=== PATIENT | female | born 1980 | race Caucasian/White ===

== ENCOUNTER 2016-12-04 12:22 | Emergency (ER) | payer SELFPAY ==
[2016-12-04 12:41] VITALS: BP 131/65
--- NOTE | 2016-12-04 13:24 | ED ---
Throat Pain/Nasal Congestion - HPI Summary HPI Summary: 36yo female presents with a feeling of a foreign body in her right eye since yesterday. She does not know if something might of went into her eye. She was only watching TV when the symptoms started. No symptoms previously. No contacts or eye glasses. Pain worse with looking to the right, and some blurred vision looking to the right as well. Some peripheral blurred vision when looking straight. No discharge or drainage. No shadows or curtain dropping in vision. + photophobia. Tetanus is up to date. LMP Nov 16. - History of Current Complaint Chief Complaint: EDEyeProblem - Allergies/Home Medications Allergies/Adverse Reactions: Allergies Allergy/AdvReac Type Severity Reaction Status Date / Time Latex Allergy Intermediate Rash Verified 02/23/15 11:29 PMH/Surg Hx/FS Hx/Imm Hx Previously Healthy: Yes - Surgical History Surgery Procedure, Year, and Place: CSECTION Infectious Disease History: No Infectious Disease History: Denies: Traveled Outside the [place] in Last 30 Days - Family History Known Family History: Positive: Other - breast and lung cancer. 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 HEENT: Head atraumatic/normocephalic, EOMI/PIO, conjunctiva with minimal erythema. No drainage. Lid without edema or erythema. Slit lamp exam showed no hyphema, no uptake of fluroscein, no foreign body, clear anterior chamber. + photophobia with pain with pupil constriction by accommodation. No punctate lesions. TMs appear without erythema/bulging, Nose appears without congestion or drainage, Throat uvula midline without exudates, erythema, or tonsillar edema. NECK: Supple with normal range of motion during conversation. No lymphadenopathy. CARDIAC: RRR without murmur, rub or gallop LUNGS: Clear to auscultation without wheezing, rales or rhonchi. Normal respiratory effort. Breath sounds are symmetrical and equal. NEUROLOGICAL: Patient is alert and appropriate. Cranial nerves are grossly intact. PSYCHIATRIC: Appropriate affect. Vital Signs On Initial Exam: Initial Vitals Temp Pulse Resp BP Pulse Ox 98.5 F 69 16 131/65 99 12/04/16 12:39 12/04/16 12:39 12/04/16 12:39 12/04/16 12:39 12/04/16 12:39 Diagnostics - Vital Signs Vital Signs Temp Pulse Resp BP Pulse Ox 12/04/16 12:39 98.5 F 69 16 131/65 99 - Laboratory Lab Statement: Any lab studies that have been ordered have been reviewed, and results considered in the medical decision making process. Re-Evaluation - Re-Evaluation First Eval Change: Unchanged Second Eval Change: Improved - Some improvement with tetracaine Third Eval Change: Improved - Patient states that pain has resolved completely after Dr. Ortiz's exam. EENT Course/Dx - Course Assessment/Plan: 36yo female presents with sudden onset of right eye pain with a feeling of a foreign body. Patient with an exam only significant for photophobia and mild conjunctival inflammation. No foreign body seen, no uptake. Normal visual acuities. Exam repeated by Dr. Ortiz. Patient stated that symptoms completely resolved before discharge. Discussed with Dr. Palmer who will see in the office tomorrow at 8am. Patient to return with any problems, concerns or new/worsening symptoms. - Diagnoses Provider Diagnoses: Pain, eye, right - Provider Notifications Discussed Care of Patient with: Dr. Ortiz, saw and examined patient. Dr. Palmer, will see patient tomorrow at 8a Discharge - Discharge Plan Condition: Good Disposition: HOME Patient Education Materials: Ibuprofen (By mouth), Eye Pain (ED) Referrals: Justin Palmer MD [Medical Doctor] - 1 Day No Primary Care Phys,NOPCP [Primary Care Provider] - Additional Instructions: You have an appointment tomorrow at 8am at Dr. Palmer's office. Please bring your insurance, id and any copay needed at they're request. Please return with any problems, concerns or new/worsening symptoms.
== END 2016-12-04 16:03 | disposition home or self-care (01) ==
LOC: ED 12:22
DX: H53.8 Other visual disturbances (principal); H53.149 Visual discomfort, unspecified; R51 Headache
CPT/HCPCS: 99282

== ENCOUNTER 2017-03-07 13:33 | Emergency (ER) | payer SELFPAY ==
--- NOTE | 2017-03-07 16:07 | RAD ---
INDICATION: Early evaluation. No heart rate identified at referring facility. 8 weeks . Evaluate for demise. COMPARISON: None TECHNIQUE: Transvaginal scans were performed with static and cine loop evaluation FINDINGS: There is an intrauterine gestational sac and pole. The pole is slightly irregular and there is no confirmed heart rate. The yolk sac is hydropic. The findings are suspicious for demise but must be correlated with serial beta-hCGs and follow-up ultrasonography. There is no adnexal mass. The right ovary measures 2.3 x 2.2 x 1.3 cm in the left 2.8 x 4.0 x 1.9 cm. There is left-sided corpus luteal cyst measuring 2.8 cm. IMPRESSION: CARDIAC ACTIVITY IS NOT CONFIRMED. SUGGEST LABORATORY AND IMAGING FOLLOW-UP OUTLINED ABOVE.
[2017-03-07 16:11] LABS: Albumin 3.8 g/dL (3.2-5.2); BUN/Creatinine Ratio 15.5 (8-20); Calcium 8.7 mg/dL (8.6-10.3); EGFR African American 151.3 (>60); EGFR Non-African American 117.6 (>60); Globulin 2.5 g/dL (2-4); Potassium 3.8 mmol/L (3.5-5.0); Total Bilirubin 0.3 mg/dL (0.2-1.0); Total Protein 6.3 g/dL (6.4-8.9)
[2017-03-07 16:46] LABS: Hematocrit 38 % (35-47); Hemoglobin 12.9 g/dl (12.0-16.0); Mean Corpuscular HGB Conc 34 g/dl (31-36); Mean Corpuscular Hemoglobin 31 pg (27-31); Mean Corpuscular Volume 90 fL (80-97); Mean Platelet Volume 9 um3 (7.4-10.4); Red Blood Count 4.22 10^6/ul (4.0-5.4); Red Cell Distribution Width 13 % (10.5-15); White Blood Count 14.1 10^3/ul (3.5-10.8)
[2017-03-07] MEDS ORDERED: Acetaminophen TAB* 325 MG PO ONE (17:39)
[2017-03-07] MEDS ORDERED: Acetaminophen TAB* 325 MG ONE (17:40)
[2017-03-07 17:48] VITALS: BP 115/74
--- NOTE | 2017-03-07 19:18 | ED ---
Sammi Alaniz Alok, scribed for Adi Bower MD on 03/07/17 at 1526 . - HPI Summary HPI Summary: 36 y/o female [facility], fetus HR could not be detected. Pt is 8 weeks and this his her 6th with 2 live births and 3 miscarriages ( GPA = 6, 2, 3). Her LNMP was Dec 21, 2016. Pt notes swollen breasts and increased urine frequency consistent with earlier pregnancies. Pt denies abd pain, vaginal bleeding, back pain, kidney pain, leg swelling, lightheadedness or dizziness. Pt denies tobacco or ETOH use. Her last was May 2014 and pt is blood type A-positive (VERIFIED). - History of Current Complaint Chief Complaint: EDOBProblems Stated Complaint: POSS MISCARRIAGE Time Seen by Provider: 03/07/17 14:51 Hx Obtained From: Patient Chief Complaint: Concern for Demise Pain Intensity: 0 Associated Signs and Symptoms: Negative: Back Pain, Fever, Vaginal Bleeding or Discharge - Assessment Hx Now: Yes Hx : 6 Hx Para: 2 SAB: 1 IEA: 4 Hx Last Menstrual Period: 12/21/16 - Additional Pertinent History Maternal Blood Type and Rh: A Positive - Allergies/Home Medications Allergies/Adverse Reactions: Allergies Allergy/AdvReac Type Severity Reaction Status Date / Time Latex Allergy Intermediate Rash Verified 02/23/15 11:29 PMH/Surg Hx/FS Hx/Imm Hx - Surgical History Surgery Procedure, Year, and Place: CSECTION Infectious Disease History: No Infectious Disease History: Denies: Traveled Outside the [place] in Last 30 Days - Family History Known Family History: Positive: Other - breast and lung cancer. - Social History Occupation: Employed Full-time Alcohol Use: None Substance Use Type: Reports: None Smoking Status (MU): Former Smoker Type: Cigarettes Amount Used/How Often: 1 PPD x4 years-quit 9 yrs ago Length of Time of Smoking/Using Tobacco: 4 years Have You Smoked in the Last Year: No Review of Systems Negative: Fever Negative: Abdominal Pain Positive: frequency. Negative: flank pain Negative: Edema, Other - Back pain Neurological: Other - Negative: lightheadedness, dizziness All Other Systems Reviewed And Are Negative: Yes Physical Exam - Summary Physical Exam Summary: The patient is well-nourished in no acute distress and in no acute pain. The skin is warm and dry and skin color reflects adequate perfusion. Good skin turgor HEENT: The head is normocephalic and atraumatic. The pupils are equal and reactive. The conjunctivae are clear and without drainage. Nares are patent and without drainage. Mouth reveals moist mucous membranes and the throat is without erythema and exudate. The external ears are intact. The ear canals are patent and without drainage. The tympanic membranes are intact. Neck is supple with full range of motion and non-tender. There are no carotid bruits. There is no neck vein distension. Respiratory: Chest is non-tender. Lungs are clear to auscultation and breath sounds are symmetrical and equal. Cardiovascular: Hear is regular rate and rhythm. There is no murmur or rub auscultated. There is no peripheral edema and pulses are symmetrical and equal. Abdomen: The abdomen is soft and non-tender. Abdomen is non-distended There are normal bowel sounds heard in all four quadrants and there is no organomegaly palpated. Musculoskeletal: There is no back pain noted. No CVA tenderness. Extremities are non-tender with full range of motion. There is good capillary refill. There is no peripheral edema or calf tenderness elicited. Neurological: Patient is alert and oriented to person, place and time. The patient has symmetrical motor strength in all four extremities. Cranial nerves are grossly intact. Deep tendon reflexes are symmetrical and equal in all four extremities. Psychiatric: The patient has an appropriate affect and does not exhibit any anxiety or depression. - Physical Exam Triage Information Reviewed: Yes Vital Signs On Initial Exam: Initial Vital Signs Temp 99.0 F 03/07/17 13:35 Pulse 75 03/07/17 13:35 Resp 16 03/07/17 13:35 BP 126/75 03/07/17 13:35 Pulse Ox 100 03/07/17 13:35 Vital Signs Reviewed: Yes Diagnostics - Vital Signs Vital Signs Temp Pulse Resp BP Pulse Ox 03/07/17 14:48 98.5 F 71 16 123/63 98 03/07/17 13:35 99.0 F 75 16 126/75 100 - Laboratory Lab Results: Lab Results 03/07/17 03/07/17 Range/Units 15:43 16:36 WBC 14.1 H (3.5-10.8) 10^3/ul RBC 4.22 (4.0-5.4) 10^6/ul Hgb 12.9 (12.0-16.0) g/dl Hct 38 (35-47) % MCV 90 (80-97) fL MCH 31 (27-31) pg MCHC 34 (31-36) g/dl RDW 13 (10.5-15) % Plt Count 253 (150-450) 10^3/ul MPV 9 (7.4-10.4) um3 Neut % (Auto) 67.6 (38-83) % Lymph % (Auto) 23.6 L (25-47) % Barnwell % (Auto) 5.6 (1-9) % Eos % (Auto) 2.6 (0-6) % Baso % (Auto) 0.6 (0-2) % Absolute Neuts (auto) 9.5 H (1.5-7.7) 10^3/ul Absolute Lymphs (auto) 3.3 (1.0-4.8) 10^3/ul Absolute Monos (auto) 0.8 (0-0.8) 10^3/ul Absolute Eos (auto) 0.4 (0-0.6) 10^3/ul Absolute Basos (auto) 0.1 (0-0.2) 10^3/ul Absolute Nucleated RBC 0.01 10^3/ul Nucleated RBC % 0.1 Sodium 134 (133-145) mmol/L Potassium 3.8 (3.5-5.0) mmol/L Chloride 106 (101-111) mmol/L Carbon Dioxide 23 (22-32) mmol/L Anion Gap 5 (2-11) mmol/L BUN 9 (6-24) mg/dL Creatinine 0.58 (0.51-0.95) mg/dL Est GFR ( Amer) 151.3 (>60) Est GFR (Non-Af Amer) 117.6 (>60) BUN/Creatinine Ratio 15.5 (8-20) Glucose 109 H (70-100) mg/dL Calcium 8.7 (8.6-10.3) mg/dL Total Bilirubin 0.30 (0.2-1.0) mg/dL AST 12 L (13-39) U/L ALT 9 (7-52) U/L Alkaline Phosphatase 38 (34-104) U/L Total Protein 6.3 L (6.4-8.9) g/dL Albumin 3.8 (3.2-5.2) g/dL Globulin 2.5 (2-4) g/dL Albumin/Globulin Ratio 1.5 (1-3) Beta HCG, Quant 20945.00 mIU/mL Result Diagrams: 03/07/17 16:36 03/07/17 15:43 Lab Statement: Any lab studies that have been ordered have been reviewed, and results considered in the medical decision making process. - Additional Comments Diagnostic Additional Comments: Transvaginal US - IMPRESSION: CARDIAC ACTIVITY IS NOT CONFIRMED. SUGGEST LABORATORY AND IMAGING FOLLOW-UP OUTLINED ABOVE. Re-Evaluation - Re-Evaluation First Eval Re-Evaluation Time: 17:21 Comment: Reviewed lab result and let patient know we are contacting OBGYN Course/Dx - Differential Diagnosis/HQI/PQRI: Spontaneous , Threatened , Ectopic , Early - Diagnoses Provider Diagnoses: Threatened miscarriage - Provider Notifications Discussed Care Of Patient With: Dr. Reyna (OBGYN) @ [id number] will follow up as an outpatient Discharge - Discharge Plan Condition: Stable Disposition: HOME Patient Education Materials: Threatened Miscarriage (ED) Referrals: No Primary Care Phys,NOPCP [Primary Care Provider] - Leanne Reyna MD [Medical Doctor] - Additional Instructions: Please follow up with OBGYN. The documentation as recorded by the Sammi saleem Alok accurately reflects the service I personally performed and the decisions made by me, Adi Bower MD.
== END 2017-03-07 17:47 | disposition home or self-care (01) ==
LOC: ED 13:33
DX: O20.0 Threatened abortion (principal); Z3A.08 8 weeks gestation of pregnancy; Z87.891 Personal history of nicotine dependence
CPT/HCPCS: 36415; 76817; 80053; 84702; 85025; 99282; A9270-GY

== ENCOUNTER 2017-03-20 09:50 | Day surgery (SDC) | payer SELFPAY ==
[~2017-03-20 09:50] MED LIST: Buffered Lidocaine 1% SYRIN* 3 ML/SYR SYRINGE INTRADERM ONE; DOXYcycline IV* 100 MG in NS 0.9% 250 ML* 250 ML IVPB ONE; Famotidine IV* 10 MG/ML 2 ML (20 mg) IV ONE; Famotidine IV* 10 MG/ML 2 ML (20 mg) ONE; Metoclopramide TAB* 10 MG ONE; Metoclopramide TAB* 10 MG PO ONE
[2017-03-20] MEDS ORDERED: Propofol* 10 MG/ML 20 ML BTL IV PUSH ONE (10:36)
[2017-03-20] MEDS ORDERED: Ketorolac INJ* 30 MG/ML 1 ML VIAL ONE (10:36)
[2017-03-20] MEDS ORDERED: Lidocaine 2% PF * 5 ML VIAL ONE (10:36)
[2017-03-20] MEDS ORDERED: KETAMINE HCL* 50 MG/ML 10 ML VIAL ONE (10:36)
[2017-03-20] MEDS ORDERED: fentaNYL* 50 MCG/ML 2 ML VIAL (100 MCG VIAL) ONE (10:36)
[2017-03-20] MEDS ORDERED: Ondansetron INJ* 2 MG/ML VIAL ONE (10:36)
[2017-03-20] MEDS ORDERED: Midazolam* 1 MG/ML 5 ML VIAL (5 MG) ONE (10:36)
[2017-03-20] MEDS ORDERED: Dexamethasone IV* 4 MG/ML 1 ML (4 MG) ONE (10:36)
[2017-03-20 10:41] LABS: Hematocrit 37 % (35-47); Hemoglobin 12.7 g/dl (12.0-16.0); Mean Corpuscular HGB Conc 35 g/dl (31-36); Mean Corpuscular Hemoglobin 31 pg (27-31); Mean Corpuscular Volume 90 fL (80-97); Mean Platelet Volume 9 um3 (7.4-10.4); Red Blood Count 4.07 10^6/ul (4.0-5.4); Red Cell Distribution Width 13 % (10.5-15); White Blood Count 9.4 10^3/ul (3.5-10.8)
[2017-03-20] MEDS ORDERED: Silver Nitrate/Potassium Nitr* 1 EA STICK ONE (10:43)
[2017-03-20] MEDS ORDERED: oxyCODONE/Acetamin 5/325 MG* TAB PO PRN (11:54)
[2017-03-20] MEDS ORDERED: Ondansetron INJ* 2 MG/ML VIAL IV PRN (11:54)
[2017-03-20] MEDS ORDERED: fentaNYL* 50 MCG/ML 2 ML VIAL (100 MCG VIAL) IV PRN (11:54)
[2017-03-20] MEDS ORDERED: HYDROmorphone* 1 MG/ML 1 ML SYR IV PRN (11:54)
[2017-03-20 13:03] VITALS: BP 113/70
--- NOTE | 2017-03-21 13:49 | OP ---
DATE OF OPERATION: 03/20/17 [facility] DATE OF : 80 SURGEON: Naveed Licea MD ANESTHESIOLOGIST: Shelton Tony MD ANESTHESIA: General endotracheal. PRE-OP DIAGNOSIS: Missed at about 7 weeks' gestation. POST-OP DIAGNOSIS: Missed at about 7 weeks' gestation. OPERATIVE PROCEDURE: Suction dilation and curettage. INDICATIONS: This patient is a 36-year-old 8, para 2, who presented to the office and was found to have an approximately 6-1/2- to 7-week with no cardiac activity. The patient had not been having any bleeding or cramping. The patient desired to proceed with a D and C for management. She was extensively counseled and consent was signed. ESTIMATED BLOOD LOSS: 100 cc. URINE OUTPUT: 200 cc. IV FLUIDS: 1000 cc of lactated Ringer's. MATERIALS TO LAB: Products of conception. FINDINGS: Moderate amount of fluid and tissue within the uterus. COMPLICATIONS: None. DESCRIPTION OF PROCEDURE: The risks, benefits, and alternatives were described to the patient and informed consent was obtained. The patient was taken to the operating room with IV running where general anesthesia was induced and found to be adequate. The patient was prepped and draped in the normal sterile fashion in the high lithotomy position in Angel stirrups. A time-out was performed. The bladder was emptied. A bivalved speculum was placed in the vagina and a single-tooth tenaculum was placed on the anterior cervix. The cervix was then gently dilated using Doyle's dilators. The uterus was sounded to approximately 11 cm. Once the cervix had been sufficiently dilated, a size 8 suction curette was advanced through the cervix and into the uterine cavity. Suction was activated and with several passes, a moderate amount of blood, fluid , and tissue were obtained. Once it seemed that there was no additional blood or tissue remaining, a gentle curettage with a medium banjo curette was performed. All 4 quadrants of the uterine cavity were palpated and there was good cry noted with no remaining tissue present. The tenaculum was removed from the cervix and there was excellent hemostasis present. The speculum was removed and the patient was returned to the supine position. The patient tolerated the procedure well. Sponge, lap, and needle counts were count x2. [id number]/CPS #: [id number] MTDD
== END 2017-03-20 12:45 | disposition home or self-care (01) ==
LOC: OR 09:50
PROVIDERS: ATTEND Obstetrics & Gynecology
DX: O02.1 Missed abortion (principal); O73.1 Retained portions of placenta and membranes, without hemorrhage; Z3A.01 Less than 8 weeks gestation of pregnancy
CPT/HCPCS: 36415; 85027; 88305; A9270-GY; J1100; J1885; J2250; J2405; J2704; J3010

== ENCOUNTER 2017-11-24 09:42 | Emergency (ER) | payer SELFPAY ==
[2017-11-24] MEDS ORDERED: Ondansetron ODT TAB* 4 MG PO ONE (10:25)
[2017-11-24] MEDS ORDERED: Ketorolac INJ* 30 MG/ML 1 ML VIAL IM ONE (10:25)
--- NOTE | 2017-11-24 10:30 | ED ---
Influenza-Like Illness - HPI Summary HPI Summary: 37 female presents to ED with complaints of fever/chills, fatigue, myalgias, congestion, sore throat that began yesterday. States she started not feeling well saturday but symptoms really worsened and began yesterday 11/23/17. Did not have the flu shot this year. Denies any vomiting however admits to nausea. Denies diarrhea and has been having normal bowel movements. No chest pain or trouble breathing. Denies abdominal pain and urinary symptoms. Patient states she has been taking ibuprofen and tylenol without relief however has helped with fever. Last took tylenol at about 4am this morning. No other complaints. No PMHx. No other medications. No known sick contacts. - History of Current Complaint Chief Complaint: EDFluSymptoms Time Seen by Provider: 11/24/17 09:56 Hx Obtained From: Patient Onset/Duration: Sudden Onset, Lasting Days, Still Present, Worse Since Severity: Moderate Associated Signs & Symptoms: Fever, Myalgia, Sore Throat, Nasal Congestion, Headache Related Hx: Possible Flu/Infectious Exposure - at holidays - Allergy/Home Medications Allergies/Adverse Reactions: Allergies Allergy/AdvReac Type Severity Reaction Status Date / Time Latex Allergy Intermediate Rash Verified 03/20/17 09:57 PMH/Surg Hx/FS Hx/Imm Hx Endocrine/Hematology History: Reports: Hx Anemia - MD aware, Cardiovascular History: Denies: Hx Hypertension History: Reports: Other Problems/Disorders - hx UTI's, last UTI 2013 Sensory History: Denies: Hx Cataracts, Hx Contacts or Glasses, Hx Hearing Aid Opthamlomology History: Denies: Hx Cataracts, Hx Contacts or Glasses Neurological History: Reports: Hx Migraine - last episode early February 2017, usually one a month - Surgical History Surgery Procedure, Year, and Place: 2 2000, 2013. tonsillectomy 1994. ear tubes childhood Hx Anesthesia Reactions: No - Immunization History Immunizations Up to Date: Yes Infectious Disease History: No Infectious Disease History: Denies: Traveled Outside the [place] in Last 30 Days - Family History Known Family History: Positive: Other - breast and lung cancer. - Social History Alcohol Use: None Substance Use Type: Reports: None Smoking Status (MU): Former Smoker Type: Cigarettes Amount Used/How Often: 1 PPD x4 years-quit 12 yrs ago Length of Time of Smoking/Using Tobacco: 4 years Have You Smoked in the Last Year: No Review of Systems Positive: Fever, Chills, Fatigue Positive: Sore Throat, Nasal Discharge Cardiovascular: Negative Respiratory: Negative Positive: Nausea Positive: Myalgia Positive: Headache All Other Systems Reviewed And Are Negative: Yes Physical Exam Triage Information Reviewed: Yes Vital Signs On Initial Exam: Initial Vitals Temp Pulse Resp BP Pulse Ox 98.7 F 102 16 127/66 98 11/24/17 09:44 11/24/17 09:44 11/24/17 09:44 11/24/17 09:44 11/24/17 09:44 Vital Signs Reviewed: Yes Appearance: Positive: Well-Nourished, Ill-Appearing - dressed in three layers with hat and gloves, Pain Distress - moderate Skin: Positive: Warm - hot to touch, Skin Color Reflects Adequate Perfusion, Dry. Negative: Cold, Numb, Erythema @ Head/Face: Positive: Normal Head/Face Inspection Eyes: Positive: Conjunctiva Clear ENT: Positive: Hearing grossly normal, Pharyngeal erythema, Nasal congestion, TMs normal - with scarring b/l, Uvula midline. Negative: TM bulging, TM dull, TM red Dental: Positive: Cervical Lymphadenopathy. Negative: Percussion Tenderness @ Neck: Positive: Supple, Nontender Respiratory/Lung Sounds: Positive: Clear to Auscultation, Breath Sounds Present. Negative: Rales, Rhonchi, Wheezes, Unable to speak in full sentences Cardiovascular: Positive: Normal, RRR, Pulses are Symmetrical in both Upper and Lower Extremities. Negative: Murmur, Rub Abdomen Description: Positive: Nontender, No Organomegaly, Soft Bowel Sounds: Positive: Present Musculoskeletal: Positive: Normal, Strength/ROM Intact. Negative: Pain @ Neurological: Positive: Normal, Sensory/Motor Intact, Alert, Oriented to Person Place, Time, CN Intact II-III, Reflexes Intact, NV Bundle Intact Distally, Normal Gait Diagnostics - Vital Signs Vital Signs Temp Pulse Resp BP Pulse Ox 11/24/17 09:44 98.7 F 102 16 127/66 98 - Laboratory Lab Results: Lab Results 11/24/17 Range/Units 10:08 Group A Strep Rapid Negative (Negative) Lab Statement: Any lab studies that have been ordered have been reviewed, and results considered in the medical decision making process. Flu Symptom Course/Dx - Course Course Of Treatment: vitals normal, given toradol to help with myalgias, zofran for vomiting. appears to be suffering from influenza like illness. improved after medication. strep negative, influenza negative. no other complaints or concerns for other etiology at this time. patient is aware of worsening signs and symptoms to watch out for. increase fluid intake and rest. continue ibuprofen/tylenol. - Diagnoses Differential Diagnosis/HQI/PQRI: Positive: Influenza, Upper Respiratory Infection, Other - viral illness Provider Diagnoses: Viral illness, Nausea Discharge - Discharge Plan Condition: Stable Disposition: HOME Prescriptions: Ondansetron ODT TAB* [Zofran 4 MG Odt TAB*] 4 mg PO Q6H PRN #10 tab.odt PRN Reason: Nausea Patient Education Materials: Influenza (ED), Viral Syndrome (ED) Referrals: Sveta Layton, CROCHET BEADER [Primary Care Provider] - Additional Instructions: Continue ibuprofen/tylenol for fever and body aches every 2 hours alternating. Increase fluid intake and get plenty of rest. Stick to a BRAT diet (bananas, rice, applesauce and toast). Take zofran for nausea as needed. Follow up with PCP. Any new or worsening signs and symptoms, please return to ED/seek medical attention as discussed.
[2017-11-24] MEDS ORDERED: Ketorolac INJ* 60 MG/2 ML VIAL ONE (11:10)
[2017-11-24] MEDS ORDERED: Acetaminophen TAB* 325 MG PO ONE (11:22)
[2017-11-24] MEDS ORDERED: Acetaminophen TAB* 325 MG ONE (11:23)
[2017-11-24 11:25] VITALS: BP 119/64
== END 2017-11-24 11:29 | disposition home or self-care (01) ==
LOC: ED 09:42
DX: B34.9 Viral infection, unspecified (principal); R11.0 Nausea; R50.9 Fever, unspecified; J02.9 Acute pharyngitis, unspecified; R09.81 Nasal congestion; R51 Headache; R53.83 Other fatigue; Z87.891 Personal history of nicotine dependence
CPT/HCPCS: 87502; 87651; 96372; 96374; 99282; A9270-GY; J1885

== ENCOUNTER 2018-01-25 09:47 | Emergency (ER) | payer SELFPAY ==
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
--- NOTE | 2018-01-25 11:52 | RAD ---
HISTORY: Subacute trauma, back pain COMPARISONS: December 01, 2007 VIEWS: 3 , Frontal, lateral, and coned-down lateral sacral views of the lumbar spine FINDINGS: ALIGNMENT: The alignment is normal. VERTEBRAL BODIES: There is mild anterolateral marginal osteophyte formation at L5-S1 and at T11-T12. JOINTS: There is facet hypertrophic change at L5-S1. INTERVERTEBRAL DISCS: There is loss of intervertebral disc height at L5-S1 SOFT TISSUE: Unremarkable. OTHER: The pelvis is unremarkable. The lung bases are clear. IMPRESSION: DEGENERATIVE DISC DISEASE AND OSTEOARTHRITIS AT L5-S1 AND TO LESSER EXTENT AT T11-T12. NO ACUTE OSSEOUS INJURY OF THE LUMBAR SPINE.
--- NOTE | 2018-01-25 11:52 | RAD ---
HISTORY: Subacute trauma, left shoulder pain COMPARISONS: None VIEWS: 4, Frontal internal rotation, external rotation, outlet, and axillary views of the left shoulder FINDINGS: BONE DENSITY: Normal. BONES: There is no displaced fracture. JOINTS: There is no arthropathy. ALIGNMENT: There is no dislocation. SOFT TISSUES: Unremarkable. OTHER FINDINGS: None. IMPRESSION: NO ACUTE OSSEOUS INJURY. IF SYMPTOMS PERSIST, RECOMMEND REPEAT IMAGING.
[2018-01-25 12:01] VITALS: BP 134/76
--- NOTE | 2018-01-27 16:18 | RAD ---
HISTORY: Subacute trauma, neck pain and left shoulder pain COMPARISONS: None VIEWS: 6, Frontal, lateral, open-mouth odontoid, and bilateral oblique views of the cervical spine. FINDINGS: The cervical spine is visualized from the skull base through C7-T1. ALIGNMENT: There is straightening of the normal cervical lordosis. VERTEBRAL BODIES: The odontoid process is intact. The atlantoaxial intervals are symmetric. There is mild anterolateral marginal osteophyte formation at C4- C5 and C5-C6 with mild posterior osteophytic ridging at C5-C6. JOINTS: There is no subluxation or dislocation. The facet joints are unremarkable. On the oblique views, there is no osseous neural foraminal narrowing. INTERVERTEBRAL DISCS: There is diffuse loss of intervertebral disc height. SOFT TISSUE: The prevertebral soft tissues are normal. OTHER: The skull base is normal. The lung apices are clear. IMPRESSION: MILD DEGENERATIVE DISC DISEASE AT C4-C5 AND C5-C6. NO ACUTE OSSEOUS INJURY TO THE CERVICAL SPINE. MTDD
== END 2018-01-25 12:29 | disposition home or self-care (01) ==
LOC: UCEAST 09:47
DX: S13.9XXA Sprain of joints and ligaments of unspecified parts of neck, initial encounter (principal); V43.62XA Car passenger injured in collision with other type car in traffic accident, initial encounter; Y93.89 Activity, other specified; Y92.410 Unspecified street and highway as the place of occurrence of the external cause; M54.5 Low back pain; M25.512 Pain in left shoulder; M51.36 Other intervertebral disc degeneration, lumbar region; M47.816 Spondylosis without myelopathy or radiculopathy, lumbar region; M51.34 Other intervertebral disc degeneration, thoracic region; M47.814 Spondylosis without myelopathy or radiculopathy, thoracic region; Z32.02 Encounter for pregnancy test, result negative; Z91.040 Latex allergy status; Z87.891 Personal history of nicotine dependence
CPT/HCPCS: 72020; 72050; 72100; 84702; 99212; G0463

== ENCOUNTER 2020-03-16 08:51 | Day surgery (SDC) | payer MEDICAID ==
[~2020-03-16 08:51] MED LIST changes: +Buffered Lidocaine 1% SYRIN 1 ml INTRADERM ONE; -Buffered Lidocaine 1% SYRIN* 3 ML/SYR SYRINGE INTRADERM ONE; +DOXYcycline IV 200 MG in NS 250 mL *Pre-Op OBGYN IVPB ONE; -DOXYcycline IV* 100 MG in NS 0.9% 250 ML* 250 ML IVPB ONE; +DiMENhydriNATE IV 50 mg/ml 1 ml VIAL IV PUSH PRN; +Famotidine IV 10 MG/ML 2 ml VIAL (20 mg) IV ONE; -Famotidine IV* 10 MG/ML 2 ML (20 mg) IV ONE; -Famotidine IV* 10 MG/ML 2 ML (20 mg) ONE; +HYDROmorphone 1 MG/1 ML SYRINGE IV PRN; +Lactated Ringers 1000 ml BAG 1,000 ML IV SCH; -Metoclopramide TAB* 10 MG ONE; -Metoclopramide TAB* 10 MG PO ONE; +Naloxone 0.4 mg VIAL 0.4 mg/ml 1 ml VIAL IV PRN; +Ondansetron ODT 4 mg TAB 4 MG TAB PO ONE; +Prochlorperazine 5 mg/ml 2 ml VIAL (10 mg) IV PRN; +fentaNYL 100 mcg/2 ml 50 MCG/ML VIAL IV PRN
[2020-03-16] MEDS ORDERED: Famotidine IV 10 MG/ML 2 ml VIAL (20 mg) ONE ×2 (09:04→09:05)
[2020-03-16] MEDS ORDERED: Ondansetron ODT 4 mg TAB 4 MG TAB ONE ×2 (09:04)
[2020-03-16 09:48] LABS: ABS Basophils 0.1 10^3/ul (0-0.2); ABS Eosinophils 0.5 10^3/ul (0-0.6); ABS Lymphocytes 2.8 10^3/ul (1.0-4.8); ABS Monocytes 0.5 10^3/ul (0-0.8); Eosinophil % 5.1 %; Hematocrit 38 % (35-47); Hemoglobin 13.2 g/dL (12.0-16.0); Lymphocyte % 30.5 %; Mean Corpuscular HGB Conc 35 g/dL (31-36); Mean Corpuscular Hemoglobin 31 pg (27-31); Mean Corpuscular Volume 90 fL (80-97); Mean Platelet Volume 7.3 fL (7.4-10.4); Platelet Count 307 10^3/uL (150-450); Red Blood Count 4.19 10^6 /uL (3.70-4.87); Red Cell Distribution Width 13 % (10-15)
[2020-03-16] MEDS ORDERED: Midazolam 5 mg/5 ml VIAL 1 mg/ml 5 ml VIAL (5 mg) ONE ×2 (10:05)
[2020-03-16] MEDS ORDERED: Ketamine HCL 50 mg/ml 10 ml VIAL (500 MG) ONE ×2 (10:05)
[2020-03-16] MEDS ORDERED: fentaNYL 100 mcg/2 ml 50 MCG/ML VIAL ONE ×2 (10:05)
[2020-03-16] MEDS ORDERED: Acetaminophen IV 1 GM/100ML 100 ML ONE ×2 (10:30)
[2020-03-16] MEDS ORDERED: Lidocaine 1% VIAL 10 MG/ML VIAL ONE ×2 (10:32)
[2020-03-16 14:14] VITALS: BP 107/70
[2020-03-19] MEDS ORDERED: Scopolamine PATCH Remove NOTE PATCH OFF ONE (05:57)
== END 2020-03-16 14:10 | disposition home or self-care (01) ==
LOC: OR 08:51
PROVIDERS: ATTEND Obstetrics & Gynecology

== ENCOUNTER 2021-05-23 05:59 | Inpatient (IN) ==
[~2021-05-23 05:59] MED LIST changes: -DOXYcycline IV 200 MG in NS 250 mL *Pre-Op OBGYN IVPB ONE; -DiMENhydriNATE IV 50 mg/ml 1 ml VIAL IV PUSH PRN; -Famotidine IV 10 MG/ML 2 ml VIAL (20 mg) IV ONE; -HYDROmorphone 1 MG/1 ML SYRINGE IV PRN; +Lactated Ringers 1000 ml BAG 1,000 ML IV ONE; -Naloxone 0.4 mg VIAL 0.4 mg/ml 1 ml VIAL IV PRN; -Ondansetron ODT 4 mg TAB 4 MG TAB PO ONE; -Prochlorperazine 5 mg/ml 2 ml VIAL (10 mg) IV PRN; -fentaNYL 100 mcg/2 ml 50 MCG/ML VIAL IV PRN
[2021-05-23] MEDS: ceFOXitin 2 GM IVPREMIX 2 GM/50 ML BAG IVPB ONE (07:15)
[2021-05-23 07:33] LABS: Urine Benzodiazepine Screen None Detected (None Detect); Urine Cannabinoids Screen None Detected (None Detect); Urine Opiates Screen None Detected (None Detect)
[2021-05-23] MEDS: Sodium Citrate/Citric Acid LIQ 15 ML UDC ONE (07:53)
[2021-05-23] MEDS ORDERED: Morphine PF AMP (0.5MG/ML) 5 MG/10 ML AMP ONE (08:02)
[2021-05-23] MEDS ORDERED: fentaNYL 100 mcg/2 ml 50 MCG/ML VIAL ONE (08:02)
[2021-05-23] MEDS ORDERED: Phenylephrine 40 mcg/mL 10mL (400mcg) SYRINGE ONE ×2 (08:17→08:33)
[2021-05-23] MEDS ORDERED: Ondansetron 4 mg VIAL 2 MG/ML 2 ml VIAL ONE (08:23)
[2021-05-23] MEDS ORDERED: Oxytocin 10 UNITS/ML 1 ML VIAL ONE (08:43)
[2021-05-23] MEDS ORDERED: oxyCODONE/Acetamin 5/325 mg TAB PO PRN ×2 (09:20→09:22)
[2021-05-23] MEDS ORDERED: Metoclopramide 5 MG/ML VIAL (10 mg) IV PRN (09:20)
[2021-05-23] MEDS ORDERED: Ondansetron 4 mg VIAL 2 MG/ML 2 ml VIAL IV PRN (09:20)
[2021-05-23] MEDS ORDERED: Naloxone 4 mg VIAL (10 ml) 2 MG in NS 0.9% 250 ml 250 ML IV PRN (09:20)
[2021-05-23] MEDS ORDERED: Naloxone 0.4 mg VIAL 0.4 mg/ml 1 ml VIAL IV PRN ×2 (09:20→09:22)
[2021-05-23] MEDS ORDERED: fentaNYL 100 mcg/2 ml 50 MCG/ML VIAL IV PRN (09:22)
[2021-05-23] MEDS ORDERED: Dibucaine 1% OINT 28.35 GM TUBE PR PRN (09:28)
[2021-05-23] MEDS ORDERED: Witch Hazel PAD JAR TOPICAL PRN (09:28)
[2021-05-23] MEDS ORDERED: Glycerin ADULT 2.4 gm SUPP PR PRN (09:28)
[2021-05-23] MEDS ORDERED: Acetaminophen IV 1 GM/100ML 100 ML IV ONE (09:43)
[2021-05-23] MEDS: Acetaminophen IV 1 GM/100ML 100 ML IV ONE (09:56)
[2021-05-23] MEDS ORDERED: Lactated Ringers 1000 ml BAG 1,000 ML IV SCH (10:00)
[2021-05-24 06:33] LABS: ABS Basophils 0.1 10^3/ul (0-0.2); ABS Eosinophils 0.3 10^3/ul (0-0.6); ABS Lymphocytes 2.2 10^3/ul (1.0-4.8); ABS Monocytes 1.2 10^3/ul (0-0.8); ABS Neutrophils 12.3 10^3/ul (1.5-7.7); Hematocrit 32 % (35-47); Hemoglobin 10.6 g/dL (12.0-16.0); Lymphocyte % 13.6 %; Mean Corpuscular Hemoglobin 30 pg (27-31); Mean Corpuscular Hgb Conc 33 g/dL (31-36); Mean Corpuscular Volume 91 fL (80-97); Mean Platelet Volume 7.7 fL (7.4-10.4); Platelet Count 262 10^3/uL (150-450); Red Blood Count 3.49 10^6 /uL (3.70-4.87); Red Cell Distribution Width 14 % (10-15); White Blood Count 16.1 10^3/uL (3.5-10.8)
[2021-05-25 08:13] VITALS: BP 134/74
== END 2021-05-25 11:50 | disposition home or self-care (01) ==
LOC: MCHOB 05:59
PROVIDERS: ADMIT Obstetrics & Gynecology; ATTEND Obstetrics & Gynecology